=== PATIENT | male | born 1955 | race Caucasian/White ===

== ENCOUNTER 2023-02-21 12:39 | Emergency (ER) | payer BC ==
[~2023-02-21] VITALS: Ht 170.2 cm; Wt 70.4 kg
[2023-02-21] MEDS ORDERED: CELEBREX200 MG PO (13:16)
[2023-02-21] MEDS ORDERED: PROTONIX20 MG PO (13:16)
[2023-02-21] MEDS ORDERED: FLOMAX0.4 MG PO (13:16)
[2023-02-21] MEDS ORDERED: CRESTOR10 MG PO (13:16)
[2023-02-21] MEDS ORDERED: ALTOPREV40 MG PO (13:16)
[2023-02-21] MEDS ORDERED: HYDROCHLOROTHIA25 MG PO (13:16)
[2023-02-21] MEDS ORDERED: COQ1050 MG PO (13:16)
[2023-02-21] MEDS ORDERED: LOSARTAN POTASS25 MG PO (13:16)
[2023-02-21] MEDS ORDERED: FAMOTIDINE20 MG PO (13:16)
[2023-02-21] MEDS ORDERED: TETANUS/DIPHTHERIA TOX ADULT 0.5 ML SYR IM ONE (13:30)
[2023-02-21] MEDS ORDERED: TETANUS/DIPHTHERIA TOX ADULT 0.5 ML SYR ONE (13:35)
[2023-02-21] MEDS ORDERED: BACITRACIN ZINC 0.9GM TP ONE ×2 (13:35→13:40)
[2023-02-21] MEDS ORDERED: CEPHALEXIN500 MG PO (13:48)
[2023-02-21] MEDS ORDERED: BACITRACIN15 GM TOP (13:49)
== END 2023-02-21 13:55 | disposition home or self-care (01) ==
LOC: FSED 12:48
DX: S61.432A Puncture wound without foreign body of left hand, initial encounter (principal); W26.8XXA Contact with other sharp object(s), not elsewhere classified, initial encounter; Y93.H2 Activity, gardening and landscaping; Y92.017 Garden or yard in single-family (private) house as the place of occurrence of the external cause; I10 Essential (primary) hypertension; E78.5 Hyperlipidemia, unspecified; M10.9 Gout, unspecified; M54.9 Dorsalgia, unspecified; G89.29 Other chronic pain
CPT/HCPCS: 90471; 90714; 96372; 99283